=== PATIENT | female | born 2005 ===

== ENCOUNTER 2024-04-30 11:34 | Emergency (ER) | payer OTHER, SELFPAY ==
[2024-04-30] MEDS ORDERED: Lidocaine 1% PF 5 ML VIAL ONE (11:50)
[2024-04-30] MEDS ORDERED: Bacitracin 1 PK ONE (12:37)
== END 2024-04-30 17:29 | disposition home or self-care (01) ==
LOC: ERS 11:34
DX: S61.215A Laceration without foreign body of left ring finger without damage to nail, initial encounter (principal); W26.0XXA Contact with knife, initial encounter
CPT/HCPCS: 12001; 99283

== ENCOUNTER 2024-05-07 13:14 | Emergency (ER) | payer OTHER | END 2024-05-07 13:28 | disposition home or self-care (01) | LOC: ERS 13:14 | DX: S61.215D Laceration without foreign body of left ring finger without damage to nail, subsequent encounter (principal) ==